=== PATIENT | female | born 1975 | race African-American/Black ===

== ENCOUNTER 2020-02-16 22:03 | Emergency (ER) | payer MEDICAID ==
[~2020-02-16] VITALS: Ht 157.5 cm; Wt 95.0 kg
[~2020-02-16 22:03] MED LIST: DEPRESSION MED
[2020-02-16] MEDS ORDERED: SODIUM CHLORIDE 0.9% 1,000 ML IV ONE (22:29)
[2020-02-16] MEDS ORDERED: ONDANSETRON HCL 4MG/2ML INJ IV STA (22:29)
[2020-02-16 23:16] LABS: HEMATOCRIT. 31.5 % (36.0-48.0); MEAN CORPUSCULAR HEMOGLOBIN 32.1 pg (28.0-32.0); MEAN CORPUSCULAR VOLUME 91.9 fL (81.0-99.0); MEAN PLATELET VOLUME 8.4 fl (7.4-10.4); PLATELET 327 x1000/uL (130-400); RED BLOOD CELL COUNT 3.43 mill/uL (4.2-5.4); RED CELL DISTRIBUTION WIDTH 14.6 % (11.6-14.6)
[2020-02-16 23:22] LABS: CLARITY URINE CLEAR (CLEAR); COLOR URINE YELLOW (YELLOW); KETONES URINE NEGATIVE (NEGATIVE); LEUKOCYTE ESTERASE URINE NEGATIVE (NEGATIVE); NITRITE URINE NEGATIVE (NEGATIVE); OCCULT BLOOD URINE NEGATIVE (NEGATIVE); PROTEIN URINE NEGATIVE (NEGATIVE); SPECIFIC GRAVITY URINE 1.016 (1.005-1.030)
[2020-02-16 23:22] LABS: CHLORIDE 105 mEq/L (98-107)
[2020-02-16 23:25] LABS: PROTHROMBIN TIME 10.6 sec (9.6-11.0)
[2020-02-16 23:26] LABS: ETHANOL BLOOD < 10 mg/dL
[2020-02-16] MEDS ORDERED: POTASSIUM CHLORIDE 20MEQ TABLET SR PO ONE (23:45)
[2020-02-16 23:46] LABS: *BARBITURATES SCREEN URINE NEGATIVE (NEGATIVE); *BENZODIAZEPINES SCREEN URINE NEGATIVE (NEGATIVE); *COCAINE SCREEN URINE NEGATIVE (NEGATIVE); CANNABINOID URINE SCREEN NEGATIVE (NEGATIVE); METHADONE URINE SCREEN NEGATIVE (NEGATIVE); OPIATES URINE SCREEN NEGATIVE (NEGATIVE); PHENCYCLIDINE URINE SCREEN NEGATIVE (NEGATIVE)
[2020-02-16 23:47] LABS: *AMPHETAMINES SCREEN URINE NEGATIVE (NEGATIVE)
[2020-02-17 00:53] LABS: PLATELET ESTIMATE NORMAL
[2020-02-17 01:20] VITALS: BP 143/86
== END 2020-02-17 01:20 | disposition home or self-care (01) ==
LOC: ER 22:03
DX: K29.70 Gastritis, unspecified, without bleeding (principal); R10.13 Epigastric pain; R11.10 Vomiting, unspecified; E87.6 Hypokalemia; R42 Dizziness and giddiness; F32.9 Major depressive disorder, single episode, unspecified; J45.909 Unspecified asthma, uncomplicated; F17.210 Nicotine dependence, cigarettes, uncomplicated
CPT/HCPCS: 36415; 71045; 76700; 80053; 80305; 80320; 81003; 81025; 83690; 83880; 85025; 85610; 93005; 96361; 96374; 99285; J2405; J7030; G0480

== ENCOUNTER 2024-08-20 09:58 | Emergency (ER) | payer MEDICAID ==
[~2024-08-20] VITALS: Ht 157.5 cm; Wt 105.0 kg
[2024-08-20 10:01] VITALS: O2SAT 100
[2024-08-20 10:15] VITALS: BP 142/88; PULSE 96; RESP 18; TEMP 36.7; O2SAT 98
[2024-08-20] MEDS: DEXAMETHASONE 10 MG/ML VIAL PO ONE (11:12)
== END 2024-08-20 11:28 | disposition home or self-care (01) ==
LOC: ER 09:58
DX: J02.9 Acute pharyngitis, unspecified (principal); I10 Essential (primary) hypertension; F10.90 Alcohol use, unspecified, uncomplicated; M19.90 Unspecified osteoarthritis, unspecified site; Z79.52 Long term (current) use of systemic steroids; Y90.9 Presence of alcohol in blood, level not specified
CPT/HCPCS: 99283; 87430; 87070; J1100

== ENCOUNTER 2024-10-08 12:07 | Emergency (ER) | payer OTHER ==
[~2024-10-08] VITALS: Ht 162.6 cm; Wt 100.0 kg
[2024-10-08] MEDS: KETOROLAC 30MG/ML VIAL IM ONE (15:06)
[2024-10-08] MEDS: TETANUS, DIPHTHERIA, PERTUSSIS VAC/PF 0.5ML (>10YR OLD) IM ONE (17:11)
[2024-10-08] MEDS: LIDOCAINE HCL/EPINEPHRINE 1%-EPI 1:100,000 20ML VIAL INFIL ONE (17:36)
[2024-10-08] MEDS: BACITRACIN ZINC OINT UDPKT TOP ONE (17:36)
[2024-10-08 19:28] VITALS: BP 143/63; PULSE 110; RESP 18; TEMP 37; O2SAT 100
== END 2024-10-08 19:30 | disposition home or self-care (01) ==
LOC: ER 12:07
DX: S70.352A Superficial foreign body, left thigh, initial encounter (principal); S71.112A Laceration without foreign body, left thigh, initial encounter; X58.XXXA Exposure to other specified factors, initial encounter; Y93.89 Activity, other specified; Y92.89 Other specified places as the place of occurrence of the external cause; Y99.8 Other external cause status
CPT/HCPCS: 73552; 90715; 12001; 99284; J1885; J2004; Z7610 ×2